=== PATIENT | female | born 2000 | race Two or more races ===

== ENCOUNTER 2023-11-01 19:23 | Emergency (ER) | payer OTHER ==
[2023-11-01 19:34] VITALS: BP 101/65; PULSE 89; RESP 18; TEMP 99.1; BMI 17.9
[2023-11-01] MEDS ORDERED: KETOROLAC TROMETHAMINE 30 MG/1 ML VIAL ONE ×2 (20:19)
[2023-11-01] MEDS ORDERED: LIDOCAINE 4% PATCH TP ONE (20:19)
[2023-11-01] MEDS ORDERED: ACETAMINOPHEN 500 MG TABLET (FP) ONE (20:19)
[2023-11-01] MEDS ORDERED: METHOCARBAMOL 500 MG TABLET ONE (20:19)
[2023-11-01] MEDS: LIDOCAINE 4% PATCH TP ONE (20:39)
[2023-11-01] MEDS: METHOCARBAMOL 500 MG TABLET PO ONE (20:39)
[2023-11-01] MEDS: ACETAMINOPHEN 500 MG TABLET (FP) PO ONE (20:39)
[2023-11-01] MEDS: KETOROLAC TROMETHAMINE 30 MG/1 ML VIAL IM ONE (20:39)
[2023-11-01] MEDS: LIDOCAINE PATCH REMOVAL MC SCH (20:40)
== END 2023-11-01 22:05 | disposition home or self-care (01) ==
LOC: JER 19:23
PROC: 3E0133Z Introduction of Anti-inflammatory into Subcutaneous Tissue, Percutaneous Approach (ICD-10-PCS; principal; 2023-11-01)
DX: M62.838 Other muscle spasm (principal); M54.2 Cervicalgia; X50.0XXA Overexertion from strenuous movement or load, initial encounter
CPT/HCPCS: 82962; 93005; 93010; 99284-25